=== PATIENT | female | born 1965 | race Caucasian/White ===

== ENCOUNTER 2017-03-29 08:24 | Inpatient (IN) | payer OTHER ==
[~2017-03-29] VITALS: Ht 182.9 cm; Wt 149.2 kg
[~2017-03-29 08:24] MED LIST: ANAS1 PO; CEPH500C3 PO; CYCL-36 PO; LEVO.075 PO; LORT5TAB PO; PRED10PA PO; ZOLO20CO PO
[2017-03-29 08:28] VITALS: BP 138/71; PULSE 91; RESP 18; TEMP 98.9; O2SAT 94
[2017-03-29] MEDS ORDERED: LEVO75TA3 PO (09:10)
--- NOTE | 2017-03-29 09:38 | PD ---
HPI Chief Complaint: Wound/Suture/Staple Re-Check Time Seen by Provider: 09:15 Travel History International Travel<30 days: No Contact w/Intl Traveler<30days: No Traveled to known affect area: No History of Present Illness HPI The patient was seen and examined in the presence of the nurse. This patient developed redness and swelling and pain in her right second finger 2 days ago. Yesterday she went to an urgent care center and was evaluated but no antibiotics given or prescribed. It's continued to worsen. Today he is hot red swollen the entire digit and it spread to the dorsum of her hand. Symptoms are moderate to severe. She denies fever. No active drainage. Pain is worse with movement. No alleviating factors. PFSH Past Medical History Asthma: Yes (EXERCISED INDUCED) Anxiety: Yes Cancer: No Cardiovascular Problems: No Diabetes: No Diminished Hearing: No Glaucoma: No Hepatitis: No Hiatal Hernia: No Hypertension: No Medical other: No Respiratory: No Thyroid Disease: Yes Tetanus Vaccination: > 5 Years ?: Not LMP: MENOPAUSAL Menopausal: Yes Past Surgical History Eye Surgery: Yes (kalee cataract surgery) Gynecologic Surgery: Yes (left breast lumpectomy x 2) Other Surgery: Yes (BREAST BX) Social History Alcohol Use: No Tobacco Use: No Substance Use: No Allergies-Medications (Allergen,Severity, Reaction): Coded Allergies: ciprofloxacin (Unverified Allergy, Severe, n/v, 03/29/17) penicillin G (Unverified Allergy, Severe, VOMITS, 03/29/17) Reported Meds & Prescriptions Reported Meds & Active Scripts Active Reported Levothyroxine (Levothyroxine Sodium) 75 Mcg Tab 75 Mcg PO DAILY Review of Systems General / Constitutional: No: Fever Eyes: No: Visual changes HENT: No: Headaches Cardiovascular: No: Chest Pain or Discomfort Respiratory: No: Shortness of Breath Gastrointestinal: No: Abdominal Pain Genitourinary: No: Dysuria Musculoskeletal: Positive: Limited ROM, Pain Skin: No Rash Neurologic: No: Weakness Psychiatric: No: Depression Endocrine: No: Polydipsia Hematologic/Lymphatic: No: Easy Bruising Physical Exam Narrative GENERAL: Well-nourished, well-developed patient with painful swollen right hand. SKIN: Focused skin assessment reveals no rash and nodules. Skin is Warm and dry. HEAD: Atraumatic. Normocephalic. EYES: Pupils equal and round. No scleral icterus. No injection or drainage. ENT: No nasal bleeding or discharge. Mucous membranes pink and moist. NECK: Trachea midline. No JVD. CARDIOVASCULAR: Regular rate and rhythm. No murmur appreciated. RESPIRATORY: No accessory muscle use. Clear to auscultation. Breath sounds equal bilaterally. GASTROINTESTINAL: Abdomen soft, non-tender, nondistended. Hepatic and splenic margins not palpable. MUSCULOSKELETAL: Has diffuse swelling of the right second digit and diffuse swelling of the dorsum of the right hand. No ascending lymphangitis. Has a lot of pain with passive or active flexion or extension of the right second finger. There is some thickened erythematous heaped up areas between the MCP joint and PIP joint. There is no drainage or active fluctuance. No clubbing. No cyanosis. No edema. NEUROLOGICAL: Awake and alert. No obvious cranial nerve deficits. Motor grossly within normal limits. Normal speech. PSYCHIATRIC: Appropriate mood and affect; insight and judgment normal. Data Data Last Documented VS Vital Signs Date Time Temp Pulse Resp B/P (MAP) Pulse Ox O2 Delivery O2 Flow Rate FiO2 03/29/17 08:28 98.9 91 18 138/71 (93) 94 Orders Orders Iv Access Insert/Monitor (03/29/17 09:31) Complete Blood Count With Diff (03/29/17 09:31) Basic Metabolic Panel (Bmp) (03/29/17 09:31) Beta Hcg (Quant/Titer) (03/29/17 09:31) Prothrombin Time / Inr (Pt) (03/29/17 09:31) Act Partial Throm Time (Ptt) (03/29/17 09:31) Vancomycin Inj (Vancomycin Inj) (03/29/17 09:45) Admit Order (Ed Use Only) (03/29/17 11:00) Labs Laboratory Tests Test 03/29/17 09:46 White Blood Count 5.6 TH/MM3 Red Blood Count 4.51 MIL/MM3 Hemoglobin 12.8 GM/DL Hematocrit 38.8 % Mean Corpuscular Volume 85.9 FL Mean Corpuscular Hemoglobin 28.4 PG Mean Corpuscular Hemoglobin Concent 33.0 % Red Cell Distribution Width 16.3 % Platelet Count 136 TH/MM3 Mean Platelet Volume 9.3 FL Neutrophils (%) (Auto) 71.2 % Lymphocytes (%) (Auto) 19.8 % Monocytes (%) (Auto) 5.3 % Eosinophils (%) (Auto) 1.6 % Basophils (%) (Auto) 2.1 % Neutrophils # (Auto) 4.0 TH/MM3 Lymphocytes # (Auto) 1.1 TH/MM3 Monocytes # (Auto) 0.3 TH/MM3 Eosinophils # (Auto) 0.1 TH/MM3 Basophils # (Auto) 0.1 TH/MM3 CBC Comment DIFF FINAL Differential Comment Prothrombin Time 10.6 SEC Prothromb Time International Ratio 1.0 RATIO Activated Partial Thromboplast Time 26.4 SEC Blood Urea Nitrogen 16 MG/DL Creatinine 1.00 MG/DL Random Glucose 141 MG/DL Calcium Level 8.4 MG/DL Sodium Level 141 MEQ/L Potassium Level 4.9 MEQ/L Chloride Level 107 MEQ/L Carbon Dioxide Level 25.4 MEQ/L Anion Gap 9 MEQ/L Estimat Glomerular Filtration Rate 59 ML/MIN Human Chorionic Gonadotropin, Quant LESS THAN 1 MIU/ML MDM Medical Decision Making Medical Screen Exam Complete: Yes Emergency Medical Condition: Yes Medical Record Reviewed: Yes Differential Diagnosis Tenosynovitis, cellulitis, abscess Narrative Course I have reviewed the patient's electronic medical record. IV placed I gave her 1 g IV vancomycin CBC is normal Metabolic profile is normal Coagulation studies are normal I've ordered a hand x-ray I reviewed the case the primary physician who will admit I discussed with hand surgeon Dr. Lema who will be a instructional design consultant and will determine if this patient requires operative intervention Diagnosis Primary Impression: Tenosynovitis of finger and hand Admitting Information Admitting Physician Requests: Admit Dandre Sheth MD Mar 29, 2017 09:38
[2017-03-29] MEDS ORDERED: VANCOMYCIN INJ 1,000 MG in SODIUM CHLOR 0.9% 250 ML INJ 250 ML IV ONE (09:45)
[2017-03-29 09:54] LABS: BASOPHIL # 0.1 TH/MM3 (0-0.2); BASOPHIL % 2.1 % (0.0-2.0); EOSINOPHIL # 0.1 TH/MM3 (0-0.4); EOSINOPHIL % 1.6 % (0.0-4.0); HEMATOCRIT 38.8 % (35.0-46.0); HEMOGLOBIN 12.8 GM/DL (11.6-15.3); LYMPH % 19.8 % (9.0-44.0); LYMPHOCYTE # 1.1 TH/MM3 (1.0-4.8); MEAN CELL VOLUME 85.9 FL (80.0-100.0); MEAN CORPUSCULAR HEMOGLOBIN 28.4 PG (27.0-34.0); MEAN PLATELET VOLUME 9.3 FL (7.0-11.0); MONO % 5.3 % (0.0-8.0); MONOCYTE # 0.3 TH/MM3 (0-0.9); NEUT % 71.2 % (16.0-70.0); PLATELET COUNT 136 TH/MM3 (150-450); RED BLOOD COUNT 4.51 MIL/MM3 (4.00-5.30); RED CELL DISTRIBUTION WIDTH 16.3 % (11.6-17.2); WHITE BLOOD COUNT 5.6 TH/MM3 (4.0-11.0)
[2017-03-29 10:05] LABS: CHLORIDE 107 MEQ/L (98-107); SODIUM (NA) 141 MEQ/L (136-145)
[2017-03-29 10:08] LABS: BICARBONATE 25.4 MEQ/L (21.0-32.0); BLOOD UREA NITROGEN 16 MG/DL (7-18); CALCIUM 8.4 MG/DL (8.5-10.1); GLUCOSE,RANDOM 141 MG/DL (74-106)
[2017-03-29 10:09] LABS: PROTHROMBIN TIME - PATIENT 10.6 SEC (9.8-11.6)
[2017-03-29 10:12] LABS: GLOMERULAR FILTRATION RATE 59 ML/MIN (>89)
[2017-03-29 11:36] VITALS: BP 134/70
[2017-03-29] MEDS ORDERED: Vancomycin Consult Pharmacy 1 EA OTHER SCH ×2 (11:45→12:15)
--- NOTE | 2017-03-29 11:56 | RADRPT ---
EXAM DATE/TIME: 03/29/2017 11:27 [facility] COMPARISON: No previous studies available for comparison. INDICATIONS : Right hand pain, redness, &swelling primarily in the posterior aspect of the second digit with no kno wn injury. Possibly an insect bite. MEDICAL HISTORY : None. SURGICAL HISTORY : None. ENCOUNTER: Initial ACUITY: 3 days PAIN SCORE: 8/10 LOCATION: Right hand FINDINGS: Two view examination of the right hand demonstrates no fracture. Minimal soft tissue swelling second digit The joint spaces are maintained. Bony mineralization is normal. CONCLUSION: Negative for fracture or foreign body. Minimal soft tissue swelling second digit. Ben Williamson MD FACR on March 29, 2017 at 11:53 Board Certified Radiologist. This report was verified electronically.
[2017-03-29 12:00] VITALS: BP 132/79; PULSE 80; RESP 18; TEMP 97.5; O2SAT 96
[2017-03-29] MEDS: VANCOMYCIN INJ 2,000 MG in SODIUM CHLORID 0.9% 500 ML INJ 500 ML IV SCH (15:09)
[2017-03-29 16:00] VITALS: BP 124/78; PULSE 78; RESP 18; TEMP 97.8; O2SAT 95
--- NOTE | 2017-03-29 16:34 | HHI.HP ---
HPI Service CP Hospitalists Primary Care Physician Non-Staff Admission Diagnosis R second finger tenosynovitis with hand cellulitis Chief Complaint: pain and swelling to rt second finger over 2 days Travel History International Travel<30 Days: No Contact w/Intl Traveler <30 Da: No Traveled to Known Affected Are: No History of Present Illness This patient developed redness and swelling and pain in her right second finger 2 days ago. Yesterday she went to an urgent care center and was evaluated but no antibiotics given or prescribed. It's continued to worsen. Today he is hot red swollen the entire digit and it spread to the dorsum of her hand. Symptoms are moderate to severe. She denies fever. No active drainage. Pain is worse with movement. No alleviating factors Orhtopedic hand was notified and they wanted patient started on antibiotics ,NPO and they will access. Review of Systems Musculoskeletal: COMPLAINS OF: Joint Swelling Past Family Social History Past Medical History hypothyroid,asthma Past Surgical History left breast lumpectomy,left leg surgery as child,cataract Reported Medications levothyroxine,ventolin prn Allergies: Coded Allergies: ciprofloxacin (Unverified Allergy, Severe, n/v, 03/29/17) penicillin G (Unverified Allergy, Severe, VOMITS, 03/29/17) Social History NS,ND Physical Exam Vital Signs Vital Signs Date Time Temp Pulse Resp B/P (MAP) Pulse Ox O2 Delivery O2 Flow Rate FiO2 03/29/17 16:00 97.8 78 18 124/78 (93) 95 03/29/17 12:00 97.5 80 18 132/79 (96) 96 03/29/17 11:36 78 16 134/70 (91) 98 03/29/17 08:28 98.9 91 18 138/71 (93) 94 Physical Exam GENERAL: This is a well-nourished, well-developed patient, in no apparent distress. SKIN: No rashes, ecchymoses or lesions. Cool and dry. HEAD: Atraumatic. Normocephalic. No temporal or scalp tenderness. EYES: Pupils equal round and reactive. Extraocular motions intact. No scleral icterus. No injection or drainage. ENT: Nose without bleeding, purulent drainage or septal hematoma. Throat without erythema, tonsillar hypertrophy or exudate. Uvula midline. Airway patent. NECK: Trachea midline. No JVD or lymphadenopathy. Supple, nontender, no meningeal signs. CARDIOVASCULAR: Regular rate and rhythm without murmurs, gallops, or rubs. RESPIRATORY: Clear to auscultation. Breath sounds equal bilaterally. No wheezes , rales, or rhonchi. GASTROINTESTINAL: Abdomen soft, non-tender, nondistended. No hepato-splenomegaly , or palpable masses. No guarding. MUSCULOSKELETAL: Extremities without clubbing, cyanosis with swelling pain rt second fingerHas diffuse swelling of the right second digit and diffuse swelling of the dorsum of the right hand. No ascending lymphangitis. Has a lot of pain with passive or active flexion or extension of the right second finger. There is some thickened erythematous heaped up areas between the MCP joint and PIP joint NEUROLOGICAL: Awake and alert. Cranial nerves II through XII intact. Motor and sensory grossly within normal limits. Five out of 5 muscle strength in all muscle groups. Normal speech. Laboratory Laboratory Tests Test 03/29/17 09:46 White Blood Count 5.6 Red Blood Count 4.51 Hemoglobin 12.8 Hematocrit 38.8 Mean Corpuscular Volume 85.9 Mean Corpuscular Hemoglobin 28.4 Mean Corpuscular Hemoglobin Concent 33.0 Red Cell Distribution Width 16.3 Platelet Count 136 Mean Platelet Volume 9.3 Neutrophils (%) (Auto) 71.2 Lymphocytes (%) (Auto) 19.8 Monocytes (%) (Auto) 5.3 Eosinophils (%) (Auto) 1.6 Basophils (%) (Auto) 2.1 Neutrophils # (Auto) 4.0 Lymphocytes # (Auto) 1.1 Monocytes # (Auto) 0.3 Eosinophils # (Auto) 0.1 Basophils # (Auto) 0.1 CBC Comment DIFF FINAL Differential Comment Prothrombin Time 10.6 Prothromb Time International Ratio 1.0 Activated Partial Thromboplast Time 26.4 Blood Urea Nitrogen 16 Creatinine 1.00 Random Glucose 141 Calcium Level 8.4 Sodium Level 141 Potassium Level 4.9 Chloride Level 107 Carbon Dioxide Level 25.4 Anion Gap 9 Estimat Glomerular Filtration Rate 59 Human Chorionic Gonadotropin, Quant LESS THAN 1 Result Diagram: 03/29/17 0946 03/29/17 0946 Imaging Last 24 hours Impressions Hand X-Ray 03/29/17 0000 Signed Impressions: Service Date/Time: Wednesday, March 29, 2017 11:27 - CONCLUSION: Negative for fracture or foreign body. Minimal soft tissue swelling second digit. Ben Williamson MD FACR Course started on vancomycin pending ortho evaluation. Caprini VTE Risk Assessment Caprini VTE Risk Assessment: No/Low Risk (score <= 1) Caprini Risk Assessment Model Point Value = 1 Point Value = 2 Point Value = 3 Point Value = 5 Age 41-60 Minor surgery BMI > 25 kg/m2 Swollen legs Varicose veins or History of unexplained or recurrent spontaneous Oral contraceptives or hormone replacement Sepsis (< 1 month) Serious lung disease, including pneumonia (< 1 month) Abnormal pulmonary function Acute myocardial infarction Congestive heart failure (< 1 month) History of inflammatory bowel disease Medical patient at bed rest Age 61-74 Arthroscopic surgery Major open surgery (> 45 min) Laparoscopic surgery (> 45 min) Malignancy Confined to bed (> 72 hours) Immobilizing plaster cast Central venous access Age >= 75 History of VTE Family history of VTE Factor V Leiden Prothrombin [id number] Lupus anticoagulant Anticardiolipin antibodies Elevated serum homocysteine Heparin-induced thrombocytopenia Other congenital or acquired thrombophilia Stroke (< 1 month) Elective arthroplasty Hip, pelvis, or leg fracture Acute spinal cord injury (< 1 month) Prophylaxis Regimen Total Risk Factor Score Risk Level Prophylaxis Regimen 0-1 Low Early ambulation 2 Moderate Order ONE of the following: *Sequential Compression Device (SCD) *Heparin 5000 units SQ BID 3-4 Higher Order ONE of the following medications: *Heparin 5000 units SQ TID *Enoxaparin/Lovenox 40 mg SQ daily (WT < 150 kg, CrCl > 30 mL/min) *Enoxaparin/Lovenox 30 mg SQ daily (WT < 150 kg, CrCl > 10-29 mL/min) *Enoxaparin/Lovenox 30 mg SQ BID (WT < 150 kg, CrCl > 30 mL/min) AND/OR *Sequential Compression Device (SCD) 5 or more Highest Order ONE of the following medications: *Heparin 5000 units SQ TID (Preferred with Epidurals) *Enoxaparin/Lovenox 40 mg SQ daily (WT < 150 kg, CrCl > 30 mL/min) *Enoxaparin/Lovenox 30 mg SQ daily (WT < 150 kg, CrCl > 10-29 mL/min) *Enoxaparin/Lovenox 30 mg SQ BID (WT < 150 kg, CrCl > 30 mL/min) AND *Sequential Compression Device (SCD) Assessment and Plan Problem List: (1) Tenosynovitis of finger and hand ICD Codes: M65.9 - Synovitis and tenosynovitis, unspecified Status: Acute Plan: IV vancomycin hand evaluation Assessment and Plan further plan as case develops Code Status full Discussed Condition With patient Physician Certification 2 Midnight Certification Type: Admission for Inpatient Services Order for Inpatient Services The services are ordered in accordance with Medicare regulations or non- Medicare payer requirements, as applicable. In the case of services not specified as inpatient-only, they are appropriately provided as inpatient services in accordance with the 2-midnight benchmark. Estimated LOS (days): 2 2 days is the estimated time the patient will need to remain in the hospital, assuming treatment plan goals are met and no additional complications. Post-Hospital Plan: Home Yaw Espinal MD Mar 29, 2017 16:34
[2017-03-29] MEDS: ACETAMINOPHEN/HYDROcodone 325 MG/5 MG TAB PO PRN (17:11)
[2017-03-29 21:07] VITALS: BP 110/78; PULSE 83; RESP 18; TEMP 97.7; O2SAT 96
[2017-03-30] VITALS (7 sets, daily range): BP systolic 113–140; BP diastolic 62–89; PULSE 71–83; RESP 12–20; TEMP 97.1–98.2; O2SAT 93–97
--- NOTE | 2017-03-30 00:22 | PD.ORT.PN ---
Subjective Subjective Remarks 51yF 2 day history of pain and selling right index finger after possible abrasion right index finger. Please see dictated consult note for full details. Objective Vitals Vital Signs Date Time Temp Pulse Resp B/P (MAP) Pulse Ox O2 Delivery O2 Flow Rate FiO2 03/29/17 21:07 97.7 83 18 110/78 (89) 96 03/29/17 18:11 20 03/29/17 16:00 97.8 78 18 124/78 (93) 95 03/29/17 12:00 97.5 80 18 132/79 (96) 96 03/29/17 11:36 78 16 134/70 (91) 98 03/29/17 08:28 98.9 91 18 138/71 (93) 94 I/O 03/29/17 03/29/17 03/29/17 03/30/17 03/30/17 03/30/17 07:00 15:00 23:00 07:00 15:00 23:00 Intake Total 0 ml Balance 0 ml Intake Oral 0 ml # Voids 2 # Bowel Movements 1 Result Diagram: 03/29/17 0946 03/29/17 0946 Other Results Laboratory Tests Test 03/29/17 09:46 Prothromb Time International Ratio 1.0 RATIO Prothrombin Time 10.6 SEC (9.8-11.6) Objective Remarks Erythema and edema right index finger localized over proximal phalanx, sitlt ulnar and radial distributions, <2 sec capillary refill, minimal edema in hand Assessment & Plan Assessment and Plan 51yF infection right index finger -WBC 5.6 -Patient reports improvement on IV Ab. Treatment options discussed with patient including continued IV Ab, MRI, surgical intervention. Recommend continued IV Ab overnight, possible MRI in the AM, possible surgical intervention tomorrow. NPO at midnight. ESR, CRP Ce Lema MD Mar 30, 2017 00:22
[2017-03-30] MEDS: ACETAMINOPHEN/HYDROcodone 325 MG/5 MG TAB PO PRN ×2 (01:08→20:31)
[2017-03-30] MEDS: VANCOMYCIN INJ 2,000 MG in SODIUM CHLORID 0.9% 500 ML INJ 500 ML IV SCH ×2 (04:18→15:12)
[2017-03-30 08:01] LABS: CREATININE 0.84 MG/DL (0.50-1.00)
--- NOTE | 2017-03-30 10:34 | HHI.PR ---
Subjective Remarks patient with synovitis rt second finger seen by ortho for surgery this am on vancomycin esr30 . Patient feeling a little better with antibiotic. Objective Vitals GENERAL: SKIN: Warm and dry. rt second finger red swollen HEAD: Atraumatic. Normocephalic. EYES: Pupils equal and round. No scleral icterus. No injection or drainage. ENT: No nasal bleeding or discharge. Mucous membranes pink and moist. NECK: Trachea midline. No JVD. CARDIOVASCULAR: Regular rate and rhythm. RESPIRATORY: No accessory muscle use. Clear to auscultation. Breath sounds equal bilaterally. GASTROINTESTINAL: Abdomen soft, non-tender, nondistended. Hepatic and splenic margins not palpable. MUSCULOSKELETAL: Extremities without clubbing, cyanosis, or edema. No obvious deformities. NEUROLOGICAL: Awake and alert. No obvious cranial nerve deficits. Motor grossly within normal limits. Five out of 5 muscle strength in the arms and legs. Normal speech. PSYCHIATRIC: Appropriate mood and affect; insight and judgment normal. Vital Signs Date Time Temp Pulse Resp B/P (MAP) Pulse Ox O2 Delivery O2 Flow Rate FiO2 03/30/17 08:00 97.1 71 16 140/89 (106) 94 03/30/17 04:05 03/30/17 00:30 97.9 83 20 113/68 (83) 97 03/29/17 21:07 97.7 83 18 110/78 (89) 96 03/29/17 18:11 20 03/29/17 16:00 97.8 78 18 124/78 (93) 95 03/29/17 12:00 97.5 80 18 132/79 (96) 96 03/29/17 11:36 78 16 134/70 (91) 98 03/30/17 03/30/17 03/31/17 15:00 23:00 07:00 # Voids 1 Result Diagram: 03/29/17 0946 03/30/17 0715 Imaging Last 24 hours Impressions Hand X-Ray 03/29/17 0000 Signed Impressions: Service Date/Time: Wednesday, March 29, 2017 11:27 - CONCLUSION: Negative for fracture or foreign body. Minimal soft tissue swelling second digit. Ben Williamson MD FACR A/P Problem List: (1) Tenosynovitis of finger and hand ICD Codes: M65.9 - Synovitis and tenosynovitis, unspecified Status: Acute Plan: IV vancomycin for surgery today patient believes was some type of bite from insect that could have occurred Assessment and Plan as above Yaw Espinal MD Mar 30, 2017 10:33
[2017-03-30] MEDS ORDERED: BUPIVACAINE HCL PF 0.5% 30 ML VIAL ONE (11:35)
[2017-03-30] MEDS ORDERED: LIDOCAINE HCL 2% 50 ML VIAL ONE ×2 (11:35→11:38)
[2017-03-30] MEDS ORDERED: NEOMYCIN/POLYMYXIN 1 ML G.U. IRRIGANT ONE (11:36)
[2017-03-30] MEDS ORDERED: LACTATED RINGER'S 1000 ML IV PRN (12:00)
[2017-03-30] MEDS ORDERED: METOPROLOL TARTRATE 25 MG TAB PO PRN (12:00)
[2017-03-30] MEDS ORDERED: INSULIN HUMAN REGULAR 1,000 UNITS/10 ML VIAL SQ PRN (12:00)
[2017-03-30] MEDS ORDERED: POVIDONE IODINE 5% (ANTISEPSIS KIT) 4 APPLICATIONS EACH NARE PRN (12:00)
[2017-03-30] MEDS ORDERED: SODIUM CHLORID 0.9% 500 ML IV PRN (12:00)
[2017-03-30] MEDS ORDERED: CHLORHEXIDINE GLUCONATE 2 % 1 PACK (2 CLOTHS) TOPICAL PRN (12:00)
[2017-03-30] MEDS ORDERED: BACITRACIN TOP OINT 15 GM TUBE ONE (12:23)
--- NOTE | 2017-03-30 12:51 | PD.ORT.PN ---
Subjective Subjective Remarks 51yF 2 day history of pain and selling right index finger after possible abrasion right index finger. Patient reports some improvement overnight on IV Ab but persistent swelling over proximal phalanx Objective Vitals Vital Signs Date Time Temp Pulse Resp B/P (MAP) Pulse Ox O2 Delivery O2 Flow Rate FiO2 03/30/17 11:35 97.6 71 17 131/85 (100) 94 03/30/17 08:00 97.1 71 16 140/89 (106) 94 03/30/17 04:05 03/30/17 00:30 97.9 83 20 113/68 (83) 97 03/29/17 21:07 97.7 83 18 110/78 (89) 96 03/29/17 18:11 20 03/29/17 16:00 97.8 78 18 124/78 (93) 95 I/O 03/29/17 03/29/17 03/29/17 03/30/17 03/30/17 03/30/17 07:00 15:00 23:00 07:00 15:00 23:00 Intake Total 500 ml 520 ml Balance 500 ml 520 ml Intake Oral 0 ml IV Total 500 ml 520 ml # Voids 2 3 1 # Bowel Movements 1 1 Result Diagram: 03/29/17 0946 03/30/17 0715 Objective Remarks Erythema and edema right index finger localized over proximal phalanx, sitlt ulnar and radial distributions, <2 sec capillary refill, minimal edema in hand, no pain with passive ROM PIP or MP joints Assessment & Plan Assessment and Plan 51yF POD0 s/p I&D right index finger -Purulence intraop around extensor tendon, no apparent joint involvement or flexor tendon involvement -Follow cultures, IV Ab per primary team, will follow Ce Lema MD Mar 30, 2017 12:51
[2017-03-30] MEDS ORDERED: PROMETHAZINE INJ 25 MG/ML VIAL ONE (13:06)
[2017-03-31 01:22] VITALS: BP 143/74; PULSE 84; RESP 19; TEMP 97.1; O2SAT 96
[2017-03-31] MEDS ORDERED: PHARMACY ORDERED LAB ONE ×2 (02:45→12:45)
[2017-03-31] MEDS: ACETAMINOPHEN/HYDROcodone 325 MG/5 MG TAB PO PRN ×3 (03:04→20:05)
[2017-03-31] MEDS: VANCOMYCIN INJ 2,000 MG in SODIUM CHLORID 0.9% 500 ML INJ 500 ML IV SCH (03:04)
[2017-03-31 08:00] VITALS: BP 128/68; PULSE 65; RESP 20; TEMP 97.5; O2SAT 92
[2017-03-31 09:04] LABS: BASOPHIL % 0.4 % (0.0-2.0); HEMATOCRIT 34.6 % (35.0-46.0); HEMOGLOBIN 11.6 GM/DL (11.6-15.3); LYMPH % 19.5 % (9.0-44.0); LYMPHOCYTE # 0.8 TH/MM3 (1.0-4.8); MEAN CELL VOLUME 86.5 FL (80.0-100.0); MEAN CORPUSCULAR HGB CONC 33.5 % (32.0-36.0); MONO % 4.3 % (0.0-8.0); MONOCYTE # 0.2 TH/MM3 (0-0.9); NEUT % 74.8 % (16.0-70.0); PLATELET COUNT 136 TH/MM3 (150-450); RED CELL DISTRIBUTION WIDTH 15.9 % (11.6-17.2)
[2017-03-31 09:13] LABS: BICARBONATE 27.2 MEQ/L (21.0-32.0); CALCIUM 8.2 MG/DL (8.5-10.1); CREATININE 0.82 MG/DL (0.50-1.00)
--- NOTE | 2017-03-31 10:53 | HHI.PR ---
Subjective Remarks Patient feeling better has wrapping on hand s/p id rt second finger abscess with no involvement tendon on vancomycin cultures are pending ,i would like one more day antibiotics IV and then change to po and discharge home with ortho hand follow up. Objective Vitals GENERAL: SKIN: Warm and dry. large wrap on hand HEAD: Atraumatic. Normocephalic. EYES: Pupils equal and round. No scleral icterus. No injection or drainage. ENT: No nasal bleeding or discharge. Mucous membranes pink and moist. NECK: Trachea midline. No JVD. CARDIOVASCULAR: Regular rate and rhythm. RESPIRATORY: No accessory muscle use. Clear to auscultation. Breath sounds equal bilaterally. GASTROINTESTINAL: Abdomen soft, non-tender, nondistended. Hepatic and splenic margins not palpable. MUSCULOSKELETAL: Extremities without clubbing, cyanosis, or edema. No obvious deformities. NEUROLOGICAL: Awake and alert. No obvious cranial nerve deficits. Motor grossly within normal limits. Five out of 5 muscle strength in the arms and legs. Normal speech. PSYCHIATRIC: Appropriate mood and affect; insight and judgment normal. Vital Signs Date Time Temp Pulse Resp B/P (MAP) Pulse Ox O2 Delivery O2 Flow Rate FiO2 03/31/17 08:00 97.5 65 20 128/68 (88) 92 03/31/17 01:22 97.1 84 19 143/74 (97) 96 03/30/17 22:34 98.2 82 20 128/62 (84) 96 03/30/17 17:33 93 03/30/17 16:00 98.2 73 12 128/82 (97) 94 03/30/17 13:52 97.9 65 14 127/76 (93) 92 Nasal Cannula 2 03/30/17 13:30 68 14 142/80 (100) 98 Nasal Cannula 2 03/30/17 13:15 67 14 103/71 (82) 98 Nasal Cannula 2 03/30/17 13:00 68 14 116/74 (88) 98 Nasal Cannula 2 03/30/17 12:48 97.7 71 14 114/72 (86) 94 Nasal Cannula 4 03/30/17 12:45 71 03/30/17 12:00 97.6 76 16 131/85 (100) 94 03/30/17 11:35 97.6 71 17 131/85 (100) 94 Result Diagram: 03/31/1738 03/31/17 0838 Imaging Last 24 hours Impressions Hand X-Ray 03/29/17 0000 Signed Impressions: Service Date/Time: Wednesday, March 29, 2017 11:27 - CONCLUSION: Negative for fracture or foreign body. Minimal soft tissue swelling second digit. Ben Williamson MD FACR A/P Problem List: (1) Tenosynovitis of finger and hand ICD Codes: M65.9 - Synovitis and tenosynovitis, unspecified Status: Acute Plan: IV vancomycin for surgery today patient believes was some type of bite from insect that could have occurred ID rt finger abscess without involvement of tendon cultures pending discharge tomorrow on PO antibiotics . Patient delevoping yeast like symptoms with burning will start diflucan today. Assessment and Plan as above Yaw Espinal MD Mar 31, 2017 10:53
[2017-03-31] MEDS ORDERED: FLUCONAZOLE 100 MG TAB PO ONE (11:00)
--- NOTE | 2017-03-31 11:41 | EKG ---
Date Performed: 03/30/2017 Time Performed: 05:15:28 PTAGE: 51 years EKG: Sinus rhythm RIGHT BUNDLE BRANCH BLOCK LEFT ANTERIOR FASCICULAR BLOCK POSSIBLE SEPTAL MYOCARDIAL INFARCTION - age indeterminate ABNORMAL ECG PREVIOUS TRACING : 12/31/2012 12.35 DOCTOR: Chivo Mays Interpretating Date/Time 03/31/2017 11:39:55
[2017-03-31 12:00] VITALS: BP 125/62; PULSE 76; RESP 20; TEMP 98.1; O2SAT 96
[2017-03-31 15:48] VITALS: BP 120/68; PULSE 69; RESP 20; TEMP 97.1; O2SAT 93
[2017-03-31 21:34] VITALS: BP 124/56; PULSE 72; RESP 20; TEMP 97.6; O2SAT 94
[2017-04-01] VITALS: BP 134/68; PULSE 78; RESP 20; TEMP 98.4; O2SAT 96
[2017-04-01] MEDS ORDERED: VANCOMYCIN INJ 1,500 MG in SODIUM CHLORID 0.9% 500 ML INJ 500 ML IV SCH (03:00)
[2017-04-01 07:45] LABS: CREATININE 0.88 MG/DL (0.50-1.00)
[2017-04-01 08:00] VITALS: BP 119/70; PULSE 66; RESP 18; TEMP 97.5; O2SAT 93
[2017-04-01] MEDS ORDERED: FLUCONAZOLE 100 MG TAB PO SCH (09:00)
--- NOTE | 2017-04-01 10:25 | MB ---
cc: JUNIE GASPAR DATE OF SERVICE 03/29/2017 REASON FOR CONSULTATION Pain and swelling right index finger. HISTORY OF PRESENT ILLNESS Char Garcia is a 51-year-old right-hand dominant female who believes she had an abrasion over her right index finger but denies any other trauma. She noted swelling on Saturday and presented to the hospital on Saturday. She reports some improvement on the antibiotics since admission. She denies any other prior problems with the right hand. She reports a remote history of MRSA over the left knee. She denies any paresthesias. She denies any fevers. PAST MEDICAL HISTORY 1. Hypothyroidism. 2. Asthma. PAST SURGICAL HISTORY 1. Lumpectomy. 2. Cataract. 3. Left leg surgery. MEDICATIONS 1. Levothyroxine. 2. Ventolin. ALLERGIES CIPROFLOXACIN. PENICILLIN. SOCIAL HISTORY The patient denies tobacco, alcohol or drug use. She works as a teacher. PHYSICAL EXAMINATION GENERAL: The patient is alert and oriented. VITAL SIGNS: Temperature is a 98.9, blood pressure 138/71, pulse 78. RIGHT HAND: Exam of the right hand shows erythema over the proximal phalanx of the right index finger. Minimal erythema over the hand. Sensation intact in the radial and ulnar aspect of the finger. Less than 2-second capillary refill. Minimal pain with flexion of the PIP and MP joints. No significant tenderness along the flexor tendon sheath. Swelling over the proximal phalanx of the right index finger. IMAGING STUDIES White count of 5.6, ESR 30, CRP 3.4, glucose 140. X-RAYS X-ray of the hand shows no evidence of fracture or retained foreign body. ASSESSMENT AND PLAN A 51-year-old female with an abscess over the right index finger proximal phalanx. Treatment options discussed with the patient. She reports significant improvement on the antibiotics. She will continue on antibiotics overnight in consideration for possible surgical intervention in the morning. If no improvement, possible MRI. The patient elects to proceed. MD JOSE L Spears/SSB /7:32 PM /11:28 AM AUDIE
--- NOTE | 2017-04-01 10:51 | PD.ID.CON ---
History of Present Illness Service I D Consult Requested By Dr Boss Reason for Consult R index finger MRSA infection Primary Care Physician Non-Staff Diagnoses: History of Present Illness 51 yo morbidly obese female presented with 3 days of prgressive swelling, painand redness of R hand started as a small pimple on the base of her index finger She [presented to the hospital on Saturday and underwent I+D on Saturday Op findings revealed purulence intraop around extensor tendon, no apparent joint involvement or flexor tendon involvement She was started on vancomycin Pt denies any fever and presented with no leukocytosis Her swelling redness and pain has improved She is growing MRSA from her finger wound culture and sensitivity is still P Review of Systems Except as stated in HPI: all other systems reviewed are Neg Past Family Social History Allergies: Coded Allergies: ciprofloxacin (Unverified Allergy, Severe, ANXIOUS, 03/30/17) penicillin G (Unverified Allergy, Severe, VOMITS, 03/30/17) Past Medical History 1. Hypothyroidism. 2. Asthma. Past Surgical History 1. Lumpectomy. 2. Cataract. 3. Left leg surgery. Active Ordered Medications Medications where reviewed in EMR Antibiotics Include: vancomycin Family History reviewed Non-Contributory. Social History No Tobacco. No ETOH. No Illicit Drugs. Physical Exam Vital Signs Vital Signs Date Time Temp Pulse Resp B/P (MAP) Pulse Ox O2 Delivery O2 Flow Rate FiO2 04/01/17 08:00 97.5 66 18 119/70 (86) 93 04/01/17 00:00 98.4 78 20 134/68 (90) 96 03/31/17 21:34 97.6 72 20 124/56 (78) 94 03/31/17 21:05 20 03/31/17 15:48 97.1 69 20 120/68 (85) 93 03/31/17 12:00 98.1 76 20 125/62 (83) 96 Physical Exam CONSTITUTIONAL/GENERAL: This is a morbidly obese middle age female patient, in no apparent distress. TUBES/LINES/DRAINS: SKIN: No jaundice, rashes, or lesions. Skin temperature appropriate. Not diaphoretic. HEAD: Atraumatic. Normocephalic. EYES: Pupils equal and round and reactive. Extraocular motions intact. No scleral icterus. No injection or drainage. Fundi not examined. ENT: Hearing grossly normal. Nose without bleeding or purulent drainage. Oral mucosea without visible erythema, exudates, masses, or lesions. NECK: Trachea midline. Supple, nontender. No palpable thyroid enlargement or nodularity. CARDIOVASCULAR: Regular rate and rhythm without murmurs, gallops, or rubs. No JVD. Peripheral pulses symmetric. RESPIRATORY/CHEST: Symmetric, unlabored respirations. Clear to auscultation. Breath sounds equal bilaterally. No wheezes, rales, or rhonchi. GASTROINTESTINAL: Abdomen soft, non-tender, nondistended. No hepato-splenomegaly , or palpable masses. No guarding. Bowel sounds present. MUSCULOSKELETAL: Extremities without clubbing, cyanosis, or edema. No joint tenderness or effusion noted. No calf tenderness. No mottling or clubbing. R index finger with well approximated incision on the prox phlanx, minimal serosag drainage very mildl swelling and residing appearing erythema No ascending cellulits, lymphangitis or lymphadenopathy LYMPHATICS: No palpable cervical axillae or supraclavicular adenopathy. NEUROLOGICAL: Awake and alert. Motor and sensory grossly within normal limits. Follows commands. Clear speech. . Moves all extremities. PSYCHIATRIC: No obvious anxiety/depression. no apparent hallucinations or other psychotic thought process. Laboratory Laboratory Tests Test 04/01/17 06:27 Creatinine 0.88 Estimat Glomerular Filtration Rate 68 Date/Time Source Procedure Growth Status 03/30/17 12:18 Abscess Finger Gram Stain - Final Resulted 03/30/17 12:18 Wound Culture - Preliminary S. Aureus Mrsa Resulted Result Diagram: 03/31/17 0838 04/01/17 0627 Imaging Last Impressions Hand X-Ray 03/29/17 0000 Signed Impressions: Service Date/Time: Wednesday, March 29, 2017 11:27 - CONCLUSION: Negative for fracture or foreign body. Minimal soft tissue swelling second digit. Ben Williamson MD FACR Assessment and Plan Assessment and Plan Abscess of the right index finger proximal phalanx, MRSA with findings of tenosynovitis s/p I&D right index finger - improving cont vancomycin for now anticipate d/c on oral abx per culture report (pending) x 2 weeks Ora Mays MD Apr 01, 2017 10:51
--- NOTE | 2017-04-01 10:56 | HHI.PR ---
Subjective Remarks Patient feeling well culture grew heavy growth MRSA pending sensitivities will be discharged later today on appropriate medication. Patient did have slight cough today with green sputum will get chest xray. Objective Vitals GENERAL: SKIN: Warm and dry.Hand with wrap not tender HEAD: Atraumatic. Normocephalic. EYES: Pupils equal and round. No scleral icterus. No injection or drainage. ENT: No nasal bleeding or discharge. Mucous membranes pink and moist. NECK: Trachea midline. No JVD. CARDIOVASCULAR: Regular rate and rhythm. RESPIRATORY: No accessory muscle use. Clear to auscultation. Breath sounds equal bilaterally. GASTROINTESTINAL: Abdomen soft, non-tender, nondistended. Hepatic and splenic margins not palpable. MUSCULOSKELETAL: Extremities without clubbing, cyanosis, or edema. No obvious deformities. NEUROLOGICAL: Awake and alert. No obvious cranial nerve deficits. Motor grossly within normal limits. Five out of 5 muscle strength in the arms and legs. Normal speech. PSYCHIATRIC: Appropriate mood and affect; insight and judgment normal. Vital Signs Date Time Temp Pulse Resp B/P (MAP) Pulse Ox O2 Delivery O2 Flow Rate FiO2 04/01/17 08:00 97.5 66 18 119/70 (86) 93 04/01/17 00:00 98.4 78 20 134/68 (90) 96 03/31/17 21:34 97.6 72 20 124/56 (78) 94 03/31/17 21:05 20 03/31/17 15:48 97.1 69 20 120/68 (85) 93 03/31/17 12:00 98.1 76 20 125/62 (83) 96 04/01/17 04/01/17 04/02/17 15:00 23:00 07:00 # Bowel Movements 1 Result Diagram: 03/31/17 0838 04/01/17 0627 Imaging Last 24 hours Impressions Hand X-Ray 03/29/17 0000 Signed Impressions: Service Date/Time: Wednesday, March 29, 2017 11:27 - CONCLUSION: Negative for fracture or foreign body. Minimal soft tissue swelling second digit. Ben Williamson MD FACR A/P Problem List: (1) Tenosynovitis of finger and hand ICD Codes: M65.9 - Synovitis and tenosynovitis, unspecified Status: Acute Plan: IV vancomycin for surgery today patient believes was some type of bite from insect that could have occurred ID rt finger abscess without involvement of tendon cultures pending discharge tomorrow on PO antibiotics . Patient delevoping yeast like symptoms with burning will started on diflucan await snesitivity and will discharge today Assessment and Plan as above Yaw Espinal MD Apr 01, 2017 10:56
--- NOTE | 2017-04-01 11:52 | RADRPT ---
EXAM DATE/TIME: 04/01/2017 11:34 [facility] COMPARISON: No previous studies available for comparison. INDICATIONS : Cough MEDICAL HISTORY : None. SURGICAL HISTORY : None. ENCOUNTER: Initial ACUITY: 1 day PAIN SCORE: 0/10 LOCATION: Bilateral chest FINDINGS: A single view of the chest demonstrates minimal patchy density right lower lobe. Slight elevation rig ht hemidiaphragm. Left lung clear. Heart normal in size. The cardiomediastinal contours are unremark able. Osseous structures are intact. CONCLUSION: Minimal right basilar density likely combination of atelectasis/ infiltrate. Marlon Brody MD on April 01, 2017 at 11:45 Board Certified Radiologist. This report was verified electronically.
[2017-04-01 12:00] VITALS: BP 121/71; PULSE 68; RESP 17; TEMP 97.7; O2SAT 94
--- NOTE | 2017-04-01 12:25 | MP ---
cc: CE LEMA MD DATE OF SURGERY 03/30/2017 PREOPERATIVE DIAGNOSIS Right index finger abscess. POSTOPERATIVE DIAGNOSIS Right index finger abscess. PROCEDURE Incision and drainage abscess right index finger including incision and drainage extensor tendon sheath right index finger. SURGEON Dr. Ce Lema ANESTHESIA General and local. TOURNIQUET TIME 10 minutes at 250 mmHg. SPECIMEN Cultures x2. INDICATIONS FOR PROCEDURE Char Garcia is a pleasant 51-year-old female who presented with pain and swelling over the right index finger after unknown incident. She did have some improvement on IV antibiotics but persistent swelling and pain and edema and requested surgical intervention. The risks were explained but not limited to wound complications, infection, stiffness, pain, need for additional surgeries and she elected to proceed. DESCRIPTION OF PROCEDURE The patient was identified in the preoperative holding area and the correct extremity was marked. The patient was taken to the operating room where anesthesia was induced. The right upper extremity was prepped and draped in normal sterile fashion. Tourniquet was inflated 250 mmHg for 10 minutes. A longitudinal incision was made over the radial border of the index finger proximal phalanx, over the area of localized swelling. Upon making the incision there was a very significant abscess over the right index finger involving the extensor tendon sheath which was debrided using a combination of rongeurs and cultures were sent. Three liters of antibiotic saline were irrigated through the area. There was no obvious involvement of the flexor tendon sheath or joint. The tourniquet was released. Hemostasis was obtained. The wound was closed loosely with chromic. The patient was placed into a soft bulky dressing awoken from anesthesia without any complications after approximately 10 cc of 2% lidocaine without epinephrine used for local anesthesia. The patient remains admitted on IV antibiotics. She will be discharged after cultures are resulted and she is on the appropriate antibiotics. She will be instructed on gentle range of motion of the finger but must keep the incision site clean and dry. eC Lema MD SH/SSB /12:49 AM /1:[address] [facility]
[2017-04-01] MEDS ORDERED: CLINDAMYCIN 150 MG CAP PO SCH (15:00)
[2017-04-01] MEDS ORDERED: CLIN1CAP6 PO (21:54)
[2017-04-01] MEDS ORDERED: DIFL100T PO (21:54)
--- NOTE | 2017-04-01 22:00 | HHI.DS ---
Discharge Summary Admission Date Mar 29, 2017 at 11:01 Discharge Date: Apr 01, 2017 Admitting Diagnosis R second finger tenosynovitis with hand cellulitis (1) Tenosynovitis of finger and hand Diagnosis: Principal ICD Codes: M65.9 - Synovitis and tenosynovitis, unspecified Status: Acute Consultants ortho hand ,ID Procedures I and D rt second finger Brief History This patient developed redness and swelling and pain in her right second finger 2 days ago. Yesterday she went to an urgent care center and was evaluated but no antibiotics given or prescribed. It's continued to worsen. Today he is hot red swollen the entire digit and it spread to the dorsum of her hand. Symptoms are moderate to severe. She denies fever. No active drainage. Pain is worse with movement. No alleviating factors Orhtopedic hand was notified and they wanted patient started on antibiotics ,NPO and they will access. CBC/BMP: 03/31/17 0838 04/01/17 0627 Significant Findings Laboratory Tests Test 03/30/17 07:15 03/31/17 04:10 03/31/17 08:38 04/01/17 06:27 Erythrocyte Sedimentation Rate 30 mm/hr (0-20) Estimat Glomerular Filtration Rate 72 ML/MIN (>89) 74 ML/MIN (>89) 68 ML/MIN (>89) C-Reactive Protein 3.40 MG/DL (0.00-0.30) Vancomycin Level Trough 15.1 MCG/ML (5.0-10.0) Hematocrit 34.6 % (35.0-46.0) Platelet Count 136 TH/MM3 (150-450) Neutrophils (%) (Auto) 74.8 % (16.0-70.0) Lymphocytes # (Auto) 0.8 TH/MM3 (1.0-4.8) Blood Urea Nitrogen 22 MG/DL (7-18) Random Glucose 140 MG/DL (74-106) Calcium Level 8.2 MG/DL (8.5-10.1) Chloride Level 108 MEQ/L (98-107) PE at Discharge GENERAL: SKIN: Warm and dry. HEAD: Atraumatic. Normocephalic. EYES: Pupils equal and round. No scleral icterus. No injection or drainage. ENT: No nasal bleeding or discharge. Mucous membranes pink and moist. NECK: Trachea midline. No JVD. CARDIOVASCULAR: Regular rate and rhythm. RESPIRATORY: No accessory muscle use. Clear to auscultation. Breath sounds equal bilaterally. GASTROINTESTINAL: Abdomen soft, non-tender, nondistended. Hepatic and splenic margins not palpable. MUSCULOSKELETAL: Extremities without clubbing, cyanosis, or edema. No obvious deformities. wrap on hand NEUROLOGICAL: Awake and alert. No obvious cranial nerve deficits. Motor grossly within normal limits. Five out of 5 muscle strength in the arms and legs. Normal speech. PSYCHIATRIC: Appropriate mood and affect; insight and judgment normal. Hospital Course Patient admitted and started on vancomycin IV and seen by ortho taken to or for Iand d abscess no tendon or bone involvement . Patient cultures grew out MRSA and ID consulted as to antibiotics at home . Patient had cough and had chest xray which showed nonspecific findings. As per ID dischagre on clindamycin 300 qid for 14 days and diflucan to prevent yeast . Patient has follow up this week with ortho hand . Patient to be off work until evaluation. Nurse instructed patient how to dress wound as per ortho. Pt Condition on Discharge: Good Discharge Disposition: Discharge Home Discharge Instructions DIET: Follow Instructions for: Heart Healthy Diet Activities you can perform: Regular-No Restrictions New Medications: Clindamycin (Clindamycin) 300 Mg Cap 300 MG PO Q6H for Infection for 14 Days, #56 CAP 0 Refills Fluconazole (Diflucan) 100 Mg Tab 100 MG PO DAILY for Infection for 14 Days, #14 TAB 0 Refills Continued Medications: Levothyroxine (Levothyroxine) 75 Mcg Tab 75 MCG PO DAILY for Thyroid, #30 TAB 0 Refills Additional Information to follow up this week with Yaw Dyson MD Apr 01, 2017 22:00
[2017-04-02] MEDS ORDERED: PHARMACY ORDERED LAB ONE (14:45)
== END 2017-04-01 17:08 | disposition home or self-care (01) | DRG 513 ==
LOC: PHED 08:24 → PHEDA 11:01 → PH3A 11:41
PROVIDERS: ADMIT Family Medicine; ATTEND Family Medicine
PROC: 0J9J0ZZ Drainage of Right Hand Subcutaneous Tissue and Fascia, Open Approach (ICD-10-PCS; 2017-03-30)
PROC: 0LD70ZZ Extraction of Right Hand Tendon, Open Approach (ICD-10-PCS; principal; 2017-03-30 12:00)
DX: M65.041 Abscess of tendon sheath, right hand (principal); Z68.41 Body mass index [BMI] 40.0-44.9, adult; E66.01 Morbid (severe) obesity due to excess calories; J45.909 Unspecified asthma, uncomplicated; E03.9 Hypothyroidism, unspecified; F41.9 Anxiety disorder, unspecified; B95.62 Methicillin resistant Staphylococcus aureus infection as the cause of diseases classified elsewhere; W57.XXXA Bitten or stung by nonvenomous insect and other nonvenomous arthropods, initial encounter; Z86.14 Personal history of Methicillin resistant Staphylococcus aureus infection; Z88.0 Allergy status to penicillin; Z88.1 Allergy status to other antibiotic agents
CPT/HCPCS: 71010; 73120; 76937; 80048; 80202; 82565; 82948; 84702; 85025; 85610; 85652; 85730; 86140; 86403; 87070; 87147; 87186; 87205; 93005; 96365; J2550; J3010; J3370; J7040; J7050; J7120